=== PATIENT | female | born 1950 | race Caucasian/White ===

== ENCOUNTER 2021-04-27 15:31 | Emergency (ER) | payer MEDICARE ==
[2021-04-27 17:00] LABS: CORONAVIRUS COVID-19 NAA NEGATIVE (NEGATIVE)
== END 2021-04-27 16:28 ==
LOC: JP.ED 15:31
DX: K35.30 Acute appendicitis with localized peritonitis, without perforation or gangrene (principal); Z20.822 Contact with and (suspected) exposure to COVID-19
CPT/HCPCS: 0241U; 99284

== ENCOUNTER 2021-07-26 08:06 | Day surgery (SDC) | payer MEDICARE ==
[2021-07-26] MEDS ORDERED: Dextrose 5%-Lactated Ringers 1,000 ML IV SCH (08:45)
[2021-07-26] MEDS ORDERED: Propofol 200 MG/20 ML SDV ONE (09:26)
[2021-07-26] MEDS ORDERED: fentaNYL 100 MCG/2 ML SDV ONE (09:26)
== END 2021-07-26 11:40 | disposition home or self-care (01) ==
LOC: JP.SDS 08:06
PROVIDERS: ATTEND Family Medicine
DX: C18.0 Malignant neoplasm of cecum (principal); D12.3 Benign neoplasm of transverse colon; I10 Essential (primary) hypertension; K21.9 Gastro-esophageal reflux disease without esophagitis; E78.5 Hyperlipidemia, unspecified; E66.9 Obesity, unspecified; Z98.890 Other specified postprocedural states; Z90.49 Acquired absence of other specified parts of digestive tract
CPT/HCPCS: J2704; J3010; J7121

== ENCOUNTER 2022-07-18 07:25 | Day surgery (SDC) | payer MEDICARE ==
[2022-07-18] MEDS ORDERED: fentaNYL 100 MCG/2 ML SDV ONE (07:47)
[2022-07-18] MEDS ORDERED: Propofol 200 MG/20 ML SDV ONE (07:47)
[2022-07-18] MEDS ORDERED: Lactated Ringers 1,000 ML IV SCH (08:00)
== END 2022-07-18 11:00 | disposition home or self-care (01) ==
LOC: JP.SDS 07:25
PROVIDERS: ATTEND Family Medicine
DX: Z12.11 Encounter for screening for malignant neoplasm of colon (principal); Z90.49 Acquired absence of other specified parts of digestive tract; Z98.0 Intestinal bypass and anastomosis status; Z85.038 Personal history of other malignant neoplasm of large intestine; I48.91 Unspecified atrial fibrillation; J44.9 Chronic obstructive pulmonary disease, unspecified; E78.5 Hyperlipidemia, unspecified; K21.9 Gastro-esophageal reflux disease without esophagitis
CPT/HCPCS: 45380; 93005; J2704; J3010; J7120